=== PATIENT | female | born 1960 | race Caucasian/White ===

== ENCOUNTER 2024-07-14 05:40 | Day surgery (SDC) | payer OTHER ==
[2024-07-01 11:17] VITALS: BP 139/83
[~2024-07-14] VITALS: Ht 157.5 cm; Wt 109.1 kg
[~2024-07-14 05:40] MED LIST: ADULT MULTI G200 MCG PO; ARTHRITIS PAIN650 MG PO; B-COMPLEX1 EACH PO; COZAAR25 MG PO; DICLOFENAC SODI50 MG PO; DICLOFENAC SODI75 MG PO; ELIQUIS5 MG PO; FISH OIL 1,0001 EACH PO; GABAPENTIN300 MG PO; HYDROCHLOROTH12.5 MG PO; LACTATED RINGER'S 1,000 ML IV SCH; OXYCODONE HCL5 MG PO; SENNA LAX8.6 MG PO; SYNTHROID75 MCG PO; TRELEGY ELLIPT1 EAC1
[2024-07-14] MEDS ORDERED: Ropivacaine HCl 20 MG/10 ML AMP ONE (06:05)
[2024-07-14 06:06] VITALS: BP 141/91
[2024-07-14] MEDS ORDERED: CYCLOBENZAPRINE5 MG PO (06:10)
[2024-07-14] MEDS ORDERED: PROBIOTIC1 EAC2 PO (06:10)
[2024-07-14] MEDS ORDERED: MIDAZOLAM HCL 2 MG/2 ML VIAL ONE (06:28)
[2024-07-14] MEDS ORDERED: GABAPENTIN 600 MG TAB PO SCH (07:00)
[2024-07-14] MEDS ORDERED: INTRA-ARTICULAR ANALGESIC INJECTION XX SCH (07:00)
[2024-07-14] MEDS ORDERED: OXYCODONE HCL 5 MG TAB PO SCH (07:00)
[2024-07-14] MEDS ORDERED: LIDOCAINE HCL 1% 5 ML SDV INJ ONE (07:00)
[2024-07-14] MEDS ORDERED: CEFAZOLIN SODIUM 2 GM/20 ML SYR IV SCH ×2 (07:00→15:00)
[2024-07-14] MEDS ORDERED: TRANEXAMIC ACID IN NACL,ISO-OS 1,000 MG/100 ML PIGGYBACK IV SCH ×2 (07:00→09:22)
[2024-07-14] MEDS ORDERED: KETOROLAC TROMETHAMINE 30 MG/ML VIAL IV PRN (07:00)
[2024-07-14] MEDS ORDERED: OXYCODONE HCL 5 MG TAB PO PRN (07:00)
[2024-07-14] MEDS ORDERED: ondansetron HCL 4 MG TAB PO SCH (07:00)
[2024-07-14] MEDS ORDERED: ROPIVACAINE IN 0.9% SOD CHL/PF 545 ML ELS.PMP.HR IRRIGATION SCH (07:00)
[2024-07-14] MEDS ORDERED: IBLOOD GLUCOSE TEST STRIP 1 EA TEST VI PRN (07:00)
[2024-07-14] MEDS ORDERED: PANTOPRAZOLE SODIUM 40 MG TABEC PO SCH (07:00)
[2024-07-14] MEDS ORDERED: KETAMINE in NS 50 MG/5 ML SYR ONE (07:18)
[2024-07-14] MEDS ORDERED: DEXAMETHASONE SOD PHOS 4 MG/ML VIAL ONE ×3 (07:44→07:45)
[2024-07-14] MEDS ORDERED: LIDOCAINE HCL 2% 5 ML SDV ONE ×3 (07:44)
[2024-07-14] MEDS ORDERED: ondansetron HCL 4 MG/2 ML VIAL ONE (07:45)
[2024-07-14] MEDS ORDERED: Ropivacaine HCl 0.5% 30 ML VIAL ONE ×2 (07:45)
[2024-07-14] MEDS ORDERED: propofoL 200 MG/20 ML VIAL ONE ×3 (07:45)
[2024-07-14] MEDS ORDERED: dexmedeTOMIDine HCl 200 MCG/2 ML VIAL ONE (07:45)
[2024-07-14] MEDS ORDERED: DICLOFENAC SODI75 MG PO (08:38)
[2024-07-14] MEDS ORDERED: OXYCODONE HCL5 MG PO (08:39)
[2024-07-14] MEDS ORDERED: CEFUROXIME250 MG PO (08:50)
[2024-07-14] MEDS ORDERED: fentaNYL citrate 50 MCG/ML SDV ONE (08:56)
[2024-07-14] MEDS ORDERED: ASPIRIN 325 MG TAB PO SCH (09:00)
[2024-07-14] MEDS ORDERED: fentaNYL citrate 50 MCG/ML SDV IV PRN (09:30)
[2024-07-14] MEDS ORDERED: ACETAMINOPHEN 1,000 MG/100 ML VIAL IV ONE (09:30)
[2024-07-14] MEDS ORDERED: NALOXONE HCL 0.4 MG SYR IV PRN (09:30)
[2024-07-14 09:40] VITALS: BP 151/87
[2024-07-14] MEDS ORDERED: ondansetron HCL 4 MG/2 ML VIAL IV ONE (10:45)
[2024-07-14 10:57] VITALS: BP 148/78
[2024-07-14 12:18] VITALS: BP 133/80
[2024-07-14] MEDS ORDERED: ACETAMINOPHEN 500 MG TAB PO SCH (15:00)
[2024-07-14] MEDS ORDERED: GABAPENTIN 300 MG CAP PO SCH (15:00)
--- NOTE | 2024-07-15 06:39 | OR ---
[facility] [address] [place], [place] [address] Signed DATE OF OPERATION: 07/14/2024 SURGEON: Bhargav Naqvi MD PREOPERATIVE DIAGNOSIS: Degenerative joint disease, right knee. POSTOPERATIVE DIAGNOSIS: Degenerative joint disease, right knee. PROCEDURE PERFORMED: Right total knee arthroplasty with Mukesh. VP CARE MANAGEMENT: None. ANESTHESIA: Spinal. BLOOD LOSS: 200 mL. TOURNIQUET TIME: Zero. IMPLANTS: [employer] size 4/3 10 mm polyethylene and a 32 mm patella. BRIEF HISTORY: Rachel is a 63-year-old female in significant by bilateral knee arthritis. She had undergone successful left total knee and wished to proceed with the right. Risks and benefits of operative treatment discussed with her and she elected to proceed. DESCRIPTION OF PROCEDURE: Once consent was obtained she was taken to the operating room. After adequate anesthesia she was placed on operating table. All downside pressure points were well padded. The right hip bump was placed. The leg was then prepped and draped in a standard sterile fashion. The knee was approached through a standard anterior midline incision. This was carried through skin and subcutaneous tissue. The low mid vastus arthrotomy was performed. All bleeders were cauterized as we went. The MCL was Electronically Signed By: BHARGAV NAQVI MD 07/15/24 0639 PATIENT NAME: RACHEL DEGROOT OPERATIVE REPORT DATE OF : 62 REPORT #: [id number] PHYSICIAN: BHARGAV NAQVI MD PCP: BESSIE BROWN MD REPORT IS CONFIDENTIAL AND NOT TO BE RELEASED WITHOUT AUTHORIZATION [facility] [address] [place], [place] [address] Signed elevated as a sleeve around the posteromedial corner. Osteophytes on the tibia were removed. The infrapatellar fat pad was excised and the anterior horns of the meniscus were released as was the ACL. The navigation computer arrays were placed in the proximal tibia and distal femur. The leg was then registered with the computer followed by the fine anatomic points of the knee. The Veress leg poses were undertaken and adjustments were made, primarily position of the femur. The robot was then brought in the four straight cuts and two angle cuts were made with care taken to protect the patellar tendon and MCL. The osteophytes that were remaining were removed. The posterior osteophytes removed off the femur and tibia. The trials were then positioned. Knee was taken from 0 to 120 degrees. It was stable with 11 mm polyethylene. The patella was then cut, sized and drilled for 32 mm patella. The distal femoral drill holes were completed in the proximal tibia, was completed using the keel punch followed by the drill holes. The prosthesis was obtained and the tibia was impacted until was seated flush. The polyethylene was snapped into position and the femur was impacted. The knee was then extended and loaded. The patella was clamped into position again until was seated, flushed on the cut. The patella was noted to track quite nicely with good centering. The knee was stable throughout. The wound was then copiously irrigated with one bottle of Surgiphor followed by normal saline. The periarticular soft tissues were injected with 100 mL ropivacaine and Toradol mixture. The On-Q pain pump was placed in the adductor canal from the suprapatellar pouch. The arthrotomy was then closed using a combination of #2 FiberWire, #2 Stratafix, subcutaneous tissue with 0 Stratafix and skin with 3-0. The wound was sealed with LiquiBand and Steri-Strips and dressed with an Acticoat-7 dressing. This was then overdressed with ABDs and Jim wrap. She tolerated the procedure well. All sponge, needle, and instrument counts correct. Bhargav Naqvi MD BA/MODL /[id number] Copies: ~ Electronically Signed By: BHARGAV NAQVI MD 07/15/24 0639 PATIENT NAME: RACHEL DEGROOT OPERATIVE REPORT DATE OF : 62 REPORT #: [id number] PHYSICIAN: BHARGAV NAQVI MD PCP: BESSIE BROWN MD REPORT IS CONFIDENTIAL AND NOT TO BE RELEASED WITHOUT AUTHORIZATION
[2024-07-15] MEDS ORDERED: DICLOFENAC SOD 75 MG TABEC PO SCH (08:00)
[2024-07-15] MEDS ORDERED: cefuroxime axetiL 250 MG TAB PO SCH (09:00)
[2024-07-15] MEDS ORDERED: PANTOPRAZOLE SODIUM 40 MG TABEC PO SCH (09:00)
== END 2024-07-14 12:40 | disposition home or self-care (01) ==
LOC: DS 05:40
PROVIDERS: ATTEND Specialist
PROC: 0SRC0JA Replacement of Right Knee Joint with Synthetic Substitute, Uncemented, Open Approach (ICD-10-PCS; principal; 2024-07-14 07:00)
DX: M17.11 Unilateral primary osteoarthritis, right knee (principal); I10 Essential (primary) hypertension; J44.9 Chronic obstructive pulmonary disease, unspecified; Z88.8 Allergy status to other drugs, medicaments and biological substances; Z79.899 Other long term (current) drug therapy; Z79.01 Long term (current) use of anticoagulants; Z87.891 Personal history of nicotine dependence
CPT/HCPCS: 01402; 64447; 73560; 76942; 97161; A9270; C1776; J0131; J0690; J1100; J2003; J2250; J2405; J2704; J2795; J3010; J3490; J7121; J7999